=== PATIENT | female | born 1995 | race Caucasian/White ===

== ENCOUNTER 2019-03-20 12:25 | Inpatient (IN) | payer OTHER ==
[2019-03-20] MEDS ORDERED: LACTATED RINGER'S 1,000 ML IV (13:08)
[2019-03-20] MEDS: LACTATED RINGER'S 1,000 ML IV ×2 (13:21→20:22)
[2019-03-20] MEDS ORDERED: CARBOPROST 250 MCG INJ IM (13:30)
[2019-03-20] MEDS ORDERED: OXYTOCIN 30 UNITS/LR 500 ML IV ×2 (13:30)
[2019-03-20] MEDS ORDERED: METHYLERGONOVINE 0.2 MG INJ IM (13:30)
[2019-03-20] MEDS ORDERED: LIDOCAINE 1% (MPF) 30 ML INJ INJ (13:30)
[2019-03-20] MEDS ORDERED: MISOPROSTOL 200 MCG TAB PR (13:30)
[2019-03-20 14:15] LABS: ADD MAN DIFF? NO
[2019-03-20 14:20] LABS: WHITE BLOOD COUNT 11.1 10^3/ul (4.8-10.8)
[2019-03-20 14:20] LABS: ABNORMAL IP MESSAGE 1; BASOPHILS % 0.3 % (0.0-2.0); EOSINOPHILS # 0.2 10^3/ul (0.0-0.5); EOSINOPHILS % 1.4 % (0.0-7.0); HEMATOCRIT 30.1 % (37.0-47.0); HEMOGLOBIN 9.5 g/dl (12.0-16.0); LYMPHOCYTES # 3.3 10^3/ul (0.8-2.9); LYMPHOCYTES % 29.7 % (15.0-51.0); MEAN CORPUSCULAR HEMOGLOBIN 23.1 pg (29.0-33.0); MEAN CORPUSCULAR HGB CONC 31.6 g/dl (32.0-37.0); MEAN CORPUSCULAR VOLUME 73.1 fl (82.0-101.0); MEAN PLATELET VOLUME 13.6 fl (7.4-10.4); MONOCYTE # 0.7 10^3/ul (0.3-0.9); MONOCYTES % 6.5 % (0.0-11.0); NEUTROPHIL # 6.9 10^3/ul (1.6-7.5); NEUTROPHILS % 61.8 % (39.0-77.0); PLATELET COUNT 262 10^3/UL (140-415); RED BLOOD COUNT 4.12 10^6/ul (4.20-5.40); RED CELL DISTRIBUTION WIDTH 16.4 % (11.5-14.5)
[2019-03-20 14:21] LABS: POSITIVE DIFF @See below
[2019-03-20 14:27] LABS: ADD UMIC YES; UR ASCORBIC ACID NEGATIVE (NEGATIVE); UR BACTERIA MODERATE /HPF (NONE SEEN); UR BILIRUBIN (Dip) NEGATIVE (NEGATIVE); UR BLOOD (Dip) NEGATIVE (NEGATIVE); UR CLARITY CLEAR (CLEAR); UR COLOR STRAW (YELLOW); UR GLUCOSE (Dip) NEGATIVE (NEGATIVE); UR KETONES (Dip) NEGATIVE (NEGATIVE); UR LEUKOCYTE ESTERASE (Dip) 3+ Leu/ul (NEGATIVE); UR NITRITE (Dip) NEGATIVE (NEGATIVE); UR RBC 1 /HPF (0-5); UR SPECIFIC GRAVITY (Dip) 1.003 (1.003-1.030); UR SQUAMOUS EPITHELIAL CELL FEW /HPF (FEW); UR TOTAL PROTEIN (Dip) NEGATIVE (NEGATIVE); UR UROBILINOGEN (Dip) NEGATIVE (NEGATIVE); UR WBC 9 /HPF (0-5)
[2019-03-20 14:40] LABS: ALBUMIN/GLOBULIN RATIO 0.88; ANION GAP 8 (5-13); BILIRUBIN,TOTAL 0.4 mg/dl (0.2-1.3); Estimated GFR > 60 mL/min (>60)
[2019-03-20 14:41] LABS: ALANINE AMINOTRANSFERASE 17 IU/L (13-69); ALBUMIN 3.1 g/dl (3.3-4.9); ALKALINE PHOSPHATASE 192 IU/L (42-121); ASPARTATE AMINO TRANSFERASE 20 IU/L (15-46); BILIRUBIN,INDIRECT 0.4 mg/dl (0-1.1); BLOOD UREA NITROGEN 6 mg/dl (7-20); CALCIUM 8.4 mg/dl (8.4-10.2); CARBON DIOXIDE 21 mmol/L (21-31); CHLORIDE 108 mmol/L (97-110); CREATININE 0.44 mg/dl (0.44-1.00); GLUCOSE 62 mg/dl (70-220); SODIUM 137 mmol/L (135-144); TOTAL PROTEIN 6.6 g/dl (6.1-8.1)
[2019-03-20 14:42] LABS: URIC ACID 4.1 mg/dl (3.1-7.9)
[2019-03-20 14:52] LABS: INR 0.98; PROTIME 13.1 Sec (11.9-14.9)
[2019-03-20 14:53] LABS: PARTIAL THROMBOPLASTIN TIME 24.8 Sec (23.0-35.0)
[2019-03-20 15:12] LABS: RAPID PLASMA REAGIN NONREACTIVE (NR)
[2019-03-20] MEDS: OXYTOCIN 30 UNITS/LR 500 ML IV (18:41)
[2019-03-20 20:34] LABS: AMPHETAMINE/METHAMPHETAMINE NEGATIVE (NEGATIVE); BARBITURATES NEGATIVE (NEGATIVE); BENZODIAZEPINES NEGATIVE (NEGATIVE); CANNABINOIDS NEGATIVE (NEGATIVE); COCAINE NEGATIVE (NEGATIVE); OPIATES NEGATIVE (NEGATIVE)
[2019-03-20] MEDS: ACETAMINOPHEN 325 MG TAB PO (22:46)
[2019-03-21] MEDS ORDERED: BUTORPHANOL 2 MG INJ (04:33)
[2019-03-21] MEDS: BUTORPHANOL 2 MG INJ IV (04:41)
[2019-03-21] MEDS: LACTATED RINGER'S 1,000 ML IV ×2 (04:41→18:34)
[2019-03-21] MEDS ORDERED: FENTAnyl 2MCG/ML-ROPIV 0.2% 100 ML (09:55)
[2019-03-21] MEDS ORDERED: TRIMETHOBENZAMIDE 100 MG/ML VIAL IM (10:00)
[2019-03-21] MEDS ORDERED: NALOXONE (0.4 MG/ML) INJ IV (10:00)
[2019-03-21] MEDS ORDERED: ONDANSETRON 4 MG INJ IV (10:00)
[2019-03-21] MEDS ORDERED: DIPHENHYDRAMINE 50 MG INJ IV (10:00)
[2019-03-21] MEDS: FENTAnyl 2MCG/ML-ROPIV 0.2% 100 ML BAG EPI ×2 (17:09→23:33)
[2019-03-21] MEDS: OXYTOCIN 30 UNITS/LR 500 ML IV (21:28)
[2019-03-22] MEDS: LACTATED RINGER'S 1,000 ML IV ×2 (01:50→05:08)
[2019-03-22] MEDS: MINERAL OIL LIGHT 10 ML VIAL TOP (05:00)
[2019-03-22] MEDS: FENTAnyl 2MCG/ML-ROPIV 0.2% 100 ML BAG EPI (05:00)
[2019-03-22] MEDS: OXYTOCIN 30 UNITS/LR 500 ML IV (05:46)
[2019-03-22] MEDS: IBUPROFEN 600 MG TAB PO ×4 (07:33→20:36)
[2019-03-22] MEDS ORDERED: CARBOPROST 250 MCG INJ IM (08:00)
[2019-03-22] MEDS ORDERED: MISOPROSTOL 200 MCG TAB PR (08:00)
[2019-03-22] MEDS ORDERED: OXYTOCIN 30 UNITS/LR 500 ML IV (08:00)
[2019-03-22] MEDS ORDERED: METHYLERGONOVINE 0.2 MG INJ IM (08:00)
[2019-03-22] MEDS ORDERED: ZOLPIDEM 5 MG TAB PO (08:00)
[2019-03-22] MEDS ORDERED: LANOLIN HPA 1 PKT TOP (08:00)
[2019-03-22] MEDS ORDERED: OXYCODONE/ASPIRIN (4.88/325) TAB PO (08:00)
[2019-03-22] MEDS: SENNA/DOCUSATE NA (8.6MG/50MG) TAB PO ×2 (09:00→20:35)
[2019-03-22] MEDS: WITCH HAZEL/GLYCERIN PAD PR (12:29)
[2019-03-22] MEDS: BENZOCAINE 20% 56 ML SPRAY TOP (12:30)
[2019-03-23] MEDS: IBUPROFEN 600 MG TAB PO ×3 (00:28→17:29)
[2019-03-23 08:10] LABS: ADD MAN DIFF? NO
[2019-03-23 08:15] LABS: WHITE BLOOD COUNT 10.3 10^3/ul (4.8-10.8)
[2019-03-23 08:15] LABS: ABNORMAL IP MESSAGE 1; BASOPHILS % 0.2 % (0.0-2.0); EOSINOPHILS # 0.4 10^3/ul (0.0-0.5); EOSINOPHILS % 3.6 % (0.0-7.0); HEMOGLOBIN 8.3 g/dl (12.0-16.0); LYMPHOCYTES # 3.2 10^3/ul (0.8-2.9); LYMPHOCYTES % 31.5 % (15.0-51.0); MEAN CORPUSCULAR HEMOGLOBIN 22.7 pg (29.0-33.0); MEAN CORPUSCULAR HGB CONC 30.7 g/dl (32.0-37.0); MEAN CORPUSCULAR VOLUME 73.8 fl (82.0-101.0); MONOCYTE # 0.6 10^3/ul (0.3-0.9); MONOCYTES % 6.1 % (0.0-11.0); NEUTROPHILS % 58.1 % (39.0-77.0); PLATELET COUNT 221 10^3/UL (140-415); RED BLOOD COUNT 3.66 10^6/ul (4.20-5.40); RED CELL DISTRIBUTION WIDTH 16.6 % (11.5-14.5)
[2019-03-23] MEDS: SENNA/DOCUSATE NA (8.6MG/50MG) TAB PO ×2 (08:21→20:41)
[2019-03-23 08:48] LABS: POSITIVE DIFF @See below
[2019-03-23] MEDS: LABETALOL 100 MG TAB PO (21:08)
[2019-03-24] MEDS: IBUPROFEN 600 MG TAB PO ×5 (00:10→23:54)
[2019-03-24 01:08] LABS: ADD MAN DIFF? NO
[2019-03-24 01:09] LABS: WHITE BLOOD COUNT 10.6 10^3/ul (4.8-10.8)
[2019-03-24 01:09] LABS: BASOPHILS % 0.2 % (0.0-2.0); EOSINOPHILS # 0.4 10^3/ul (0.0-0.5); EOSINOPHILS % 3.3 % (0.0-7.0); HEMATOCRIT 26.7 % (37.0-47.0); HEMOGLOBIN 8.2 g/dl (12.0-16.0); LYMPHOCYTES # 3.8 10^3/ul (0.8-2.9); LYMPHOCYTES % 35.6 % (15.0-51.0); MEAN CORPUSCULAR HEMOGLOBIN 22.7 pg (29.0-33.0); MEAN CORPUSCULAR HGB CONC 30.7 g/dl (32.0-37.0); MEAN CORPUSCULAR VOLUME 73.8 fl (82.0-101.0); MEAN PLATELET VOLUME 11.4 fl (7.4-10.4); MONOCYTE # 0.7 10^3/ul (0.3-0.9); MONOCYTES % 6.1 % (0.0-11.0); NEUTROPHIL # 5.8 10^3/ul (1.6-7.5); NEUTROPHILS % 54.4 % (39.0-77.0); PLATELET COUNT 231 10^3/UL (140-415); RED BLOOD COUNT 3.62 10^6/ul (4.20-5.40); RED CELL DISTRIBUTION WIDTH 16.7 % (11.5-14.5)
[2019-03-24 01:30] LABS: ALANINE AMINOTRANSFERASE 11 IU/L (13-69); ALKALINE PHOSPHATASE 139 IU/L (42-121); ANION GAP 4 (5-13); ASPARTATE AMINO TRANSFERASE 18 IU/L (15-46); BILIRUBIN,INDIRECT 0.2 mg/dl (0-1.1); BILIRUBIN,TOTAL 0.2 mg/dl (0.2-1.3); BLOOD UREA NITROGEN 8 mg/dl (7-20); CALCIUM 8.5 mg/dl (8.4-10.2); CARBON DIOXIDE 28 mmol/L (21-31); CHLORIDE 106 mmol/L (97-110); CREATININE 0.46 mg/dl (0.44-1.00); Estimated GFR > 60 mL/min (>60); GLUCOSE 90 mg/dl (70-220); POTASSIUM 4.1 mmol/L (3.5-5.1); SODIUM 138 mmol/L (135-144); URIC ACID 3.6 mg/dl (3.1-7.9)
[2019-03-24 01:51] LABS: INR 0.89; PROTIME 12.2 Sec (11.9-14.9)
[2019-03-24] MEDS: LABETALOL HCL 20MG INJ IV (02:34)
[2019-03-24] MEDS: MAGNESIUM SULFATE 2 GM/50 ML 50 ML IVPB (02:44)
[2019-03-24] MEDS: LACTATED RINGER'S 1,000 ML IV ×3 (02:50→22:31)
[2019-03-24] MEDS: MAGNESIUM SULFATE 20 GM/500 ML 500 ML IV ×2 (03:12→21:13)
[2019-03-24 05:47] LABS: ADD UMIC YES; UR ASCORBIC ACID NEGATIVE (NEGATIVE); UR BACTERIA FEW /HPF (NONE SEEN); UR BILIRUBIN (Dip) NEGATIVE (NEGATIVE); UR BLOOD (Dip) 3+ mg/dL (NEGATIVE); UR CLARITY SLIGHTLY CLOUDY (CLEAR); UR COLOR YELLOW (YELLOW); UR GLUCOSE (Dip) NEGATIVE (NEGATIVE); UR KETONES (Dip) NEGATIVE (NEGATIVE); UR LEUKOCYTE ESTERASE (Dip) 2+ Leu/ul (NEGATIVE); UR NITRITE (Dip) NEGATIVE (NEGATIVE); UR RBC > 182 /HPF (0-5); UR SQUAMOUS EPITHELIAL CELL FEW /HPF (FEW); UR TOTAL PROTEIN (Dip) 1+ mg/dl (NEGATIVE); UR UROBILINOGEN (Dip) NEGATIVE (NEGATIVE); UR WBC 38 /HPF (0-5)
[2019-03-24] MEDS: SENNA/DOCUSATE NA (8.6MG/50MG) TAB PO ×2 (09:00→21:08)
[2019-03-24] MEDS: DIPHTH/TET/ACEL PERTUSS (ADULT) 0.5 ML VIAL IM* (09:00)
[2019-03-24 09:11] LABS: MAGNESIUM 3.4 mg/dl (1.7-2.5)
[2019-03-24] MEDS: LABETALOL 100 MG TAB PO ×3 (09:14→22:30)
[2019-03-24] MEDS ORDERED: CALCIUM GLUCONATE 10% 1 GM in DEXTROSE 5% 100 ML IVPB ×3 (17:00→18:00)
[2019-03-24] MEDS: OXYCODONE/ASPIRIN (4.88/325) TAB PO (21:13)
[2019-03-24 22:49] LABS: MAGNESIUM 4.1 mg/dl (1.7-2.5)
[2019-03-25] MEDS: IBUPROFEN 600 MG TAB PO ×4 (05:45→23:37)
[2019-03-25] MEDS: SENNA/DOCUSATE NA (8.6MG/50MG) TAB PO ×2 (09:00→20:58)
[2019-03-25] MEDS: LABETALOL 100 MG TAB PO ×2 (09:16→20:57)
[2019-03-26] MEDS: IBUPROFEN 600 MG TAB PO ×4 (05:38→23:44)
[2019-03-26] MEDS: SENNA/DOCUSATE NA (8.6MG/50MG) TAB PO ×3 (09:00→21:23)
[2019-03-26] MEDS: LABETALOL 100 MG TAB PO ×3 (10:00→21:23)
[2019-03-27] MEDS: IBUPROFEN 600 MG TAB PO ×4 (05:30→23:55)
[2019-03-27] MEDS: SENNA/DOCUSATE NA (8.6MG/50MG) TAB PO ×2 (09:00→21:15)
[2019-03-27] MEDS: LABETALOL 100 MG TAB PO ×2 (09:20→21:16)
[2019-03-27] MEDS: NIFEdipine (XL) 30 MG TAB PO (12:01)
[2019-03-28] MEDS: IBUPROFEN 600 MG TAB PO ×2 (06:00→08:58)
[2019-03-28] MEDS: NIFEdipine (XL) 30 MG TAB PO (08:55)
[2019-03-28] MEDS: LABETALOL 100 MG TAB PO (08:56)
[2019-03-28] MEDS: SENNA/DOCUSATE NA (8.6MG/50MG) TAB PO (09:00)
== END 2019-03-28 14:15 | disposition home or self-care (01) | DRG 807 ==
LOC: L-D 12:25 → PP1 03-22 07:58
PROC: 10E0XZZ Delivery of Products of Conception, External Approach (ICD-10-PCS; principal; 2019-03-21)
PROC: 3E033VJ Introduction of Other Hormone into Peripheral Vein, Percutaneous Approach (ICD-10-PCS; 2019-03-21)
DX: O13.4 Gestational [pregnancy-induced] hypertension without significant proteinuria, complicating childbirth (principal); O14.94 Unspecified pre-eclampsia, complicating childbirth; Z3A.39 39 weeks gestation of pregnancy; Z37.0 Single live birth
CPT/HCPCS: 62322; 76815; 80053; 80307; 81001; 83735; 84560; 85025; 85384; 85610; 85730; 86592; 86850; 86900; 86901